=== PATIENT | female | born 1945 | race Caucasian/White ===

== ENCOUNTER 2022-03-04 08:11 | Day surgery (SDC) | payer MEDICARE ==
[2022-03-02 15:16] LABS: BASOPHILS % (AUTO) 0.8 % (0.0-5.0); EOSINOPHILS % (AUTO) 3.4 % (0.0-8.0); HEMATOCRIT 36.5 % (36-48); LYMPHOCYTES % (AUTO) 37.9 % (21.0-51.0); MEAN CORPUSCULAR HEMOGLOBIN 31.4 pg (27.0-33.0); MEAN CORPUSCULAR HGB CONC 33.4 g/dL (32.0-36.0); MEAN CORPUSCULAR VOLUME 94.1 fL (79-99); MONOCYTES % (AUTO) 10.3 % (3.0-13.0); NEUTROPHILS % (AUTO) 47.3 % (40.0-77.0); PLATELET COUNT (AUTO) 322 K/uL (130-400); RED BLOOD CELL COUNT(AUTO) 3.88 MIL/uL (4.00-5.50); RED CELL DISTRIBUTION WIDTH 14.4 % (11.0-15.5); WHITE BLOOD COUNT (AUTO) 9.2 K/uL (4.8-10.8)
[2022-03-02 15:26] LABS: CREATININE 1.5 mg/dL (0.5-1.5); POTASSIUM 4.6 mmol/L (3.5-5.1)
[2022-03-02 15:28] LABS: INR 1.05 (0.85-1.15); PROTHROMBIN TIME 11.4 SEC (9.6-11.6)
[2022-03-02 15:30] LABS: PARTIAL THROMBOPLASTIN TIME 27.3 SEC (26.3-35.5)
[~2022-03-04] VITALS: Ht 162.6 cm; Wt 68.8 kg
[2022-03-04] VITALS (17 sets, daily range): BP systolic 116–154; BP diastolic 60–89
[~2022-03-04 08:11] MED LIST: 0.9% NACL 250ML 250 ML IV SCH; CYCL30DR OP; ESTR0.5T PO; FENO54TA6 PO; LEVO50TA4 PO; LEVO5TAB13 PO; METF-444 PO; METO-391 PO; MULT-1367 PO; OMEP20CA12 PO; RIVA15TA PO; VALA500T42 PO; flaxseed oil PO
[2022-03-04] MEDS ORDERED: FLUMAZENIL 0.1MG/1ML 5ML VIAL IV ONE (09:03)
[2022-03-04] MEDS ORDERED: NALOXONE HCL 0.4 MG/1 ML ML ONE (09:03)
[2022-03-04] MEDS ORDERED: FENTANYL CITRATE PF 50 MCG/1 ML 2ML VIAL ONE (09:04)
[2022-03-04] MEDS ORDERED: MIDAZOLAM HCL 1 MG/ML 2ML VIAL ONE (09:04)
[2022-03-04] MEDS ORDERED: 0.9%NACL 1000ML 1,000 ML IV ONE (09:04)
== END 2022-03-04 13:05 | disposition home or self-care (01) ==
LOC: DAH 08:11
PROVIDERS: ATTEND Internal Medicine Cardiovascular Disease
DX: I48.19 Other persistent atrial fibrillation (principal); I10 Essential (primary) hypertension; M79.7 Fibromyalgia; I87.2 Venous insufficiency (chronic) (peripheral); E78.5 Hyperlipidemia, unspecified; E03.9 Hypothyroidism, unspecified; Z98.49 Cataract extraction status, unspecified eye; Z98.890 Other specified postprocedural states; Z90.710 Acquired absence of both cervix and uterus; Z90.89 Acquired absence of other organs; Z86.73 Personal history of transient ischemic attack (TIA), and cerebral infarction without residual deficits; Z82.49 Family history of ischemic heart disease and other diseases of the circulatory system; Z80.1 Family history of malignant neoplasm of trachea, bronchus and lung; Z82.3 Family history of stroke; Z80.8 Family history of malignant neoplasm of other organs or systems; Z79.01 Long term (current) use of anticoagulants; Z79.899 Other long term (current) drug therapy
CPT/HCPCS: 36415; 80048; 82948; 85025; 85610; 85730; 92960; 93005 ×2; A4215; A4216; A4221; A4222; A4223 ×3; A4606; A4663; J2250; J3010; J7030; 99152; 99153; J2310; J3490

== ENCOUNTER → 2023-08-15 | Outpatient (CLI) | payer MEDICARE ==
[~2023-08-15] MED LIST changes: -0.9% NACL 250ML 250 ML IV SCH; -ESTR0.5T PO; +ESTR0.5T2 PO
== END | disposition home or self-care (01) ==
LOC: SHCH 13:34
PROVIDERS: ATTEND Internal Medicine Cardiovascular Disease
DX: I87.2 Venous insufficiency (chronic) (peripheral) (principal); Z98.890 Other specified postprocedural states
CPT/HCPCS: 93971